=== PATIENT | female | born 1955 | race Caucasian/White ===

== ENCOUNTER 2025-06-29 14:26 | Emergency (ER) | payer MEDICAID, MEDICARE ==
[~2025-06-29] VITALS: Ht 162.6 cm; Wt 56.0 kg
[2025-06-29 14:37] VITALS: O2SAT 100
[2025-06-29 16:06] LABS: CLARITY URINE CLOUDY (CLEAR); COLOR URINE RED (YELLOW)
[2025-06-29 16:07] LABS: GLUCOSE URINE NEGATIVE (NEGATIVE); KETONES URINE 1+ (NEGATIVE); NITRITE URINE POSITIVE (NEGATIVE); OCCULT BLOOD URINE 3+ (NEGATIVE); PH URINE 7.5 (4.5-8.0); PROTEIN URINE 3+ (NEGATIVE); SPECIFIC GRAVITY URINE 1.015 (1.005-1.030); UROBILINOGEN URINE 2.0 E.U./dL (0.2-1.0)
[2025-06-29 16:08] LABS: LEUKOCYTE ESTERASE URINE 1+ (NEGATIVE)
[2025-06-29 16:35] LABS: BACTERIA URINE 3+; RBC URINE TNTC /hpf (0-2); SQUAMOUS EPITHELIAL CELL URINE 1+ /lpf (RARE/1+)
[2025-06-29 16:43] LABS: BASOPHILS % 0.6 % (0.0-2.0); EOSINOPHILS % 0.5 % (0.0-5.0); HEMATOCRIT. 40.1 % (36.0-48.0); HEMOGLOBIN. 13.3 g/dL (12.0-16.0); LYMPHOCYTES % 25.4 % (20.0-50.0); MEAN PLATELET VOLUME 9.1 fl (7.4-10.4); MONOCYTES % 7.2 % (2.0-8.0); NEUTROPHILS % 66.3 % (40.0-76.0); PLATELET 248 x1000/uL (130-400); RED BLOOD CELL COUNT 4.07 mill/uL (4.2-5.4); RED CELL DISTRIBUTION WIDTH 13.9 % (11.6-14.6)
[2025-06-29 16:55] LABS: INR 1.0
[2025-06-29 16:56] LABS: CREATININE 0.9 mg/dL (0.6-1.0); UREA NITROGEN BLOOD 8 mg/dL (9-23)
[2025-06-29 16:57] LABS: TROPONIN I HIGH SENSITIVITY 5 ng/L (3.0-34); VALPROIC ACID 34.0 ug/mL (50-100)
[2025-06-29 16:58] LABS: ASPARTATE AMINOTRANSFERASE 31 IU/L (<34); BILIRUBIN DIRECT 0.2 mg/dL (<=3.0); BILIRUBIN TOTAL 0.8 mg/dL (0.1-1.0); PROTEIN TOTAL 7.4 g/dL (6.0-8.3)
[2025-06-29] MEDS ORDERED: CEPH500C2 MT (17:06)
[2025-06-29] MEDS: CEPHALEXIN 250MG CAPSULE PO ONE (17:15)
[2025-06-29 17:18] VITALS: BP 121/67; PULSE 56; RESP 18; TEMP 36.8; O2SAT 100
== END 2025-06-29 17:23 | disposition home or self-care (01) ==
LOC: ER 14:26
DX: N39.0 Urinary tract infection, site not specified (principal); R31.9 Hematuria, unspecified; E78.00 Pure hypercholesterolemia, unspecified; E86.0 Dehydration; I10 Essential (primary) hypertension; Z88.0 Allergy status to penicillin
CPT/HCPCS: 36415; 76770; 80048; 80076; 80165; 81003; 82550; 83880; 84484; 85025; 86850; 86900; 99284